=== PATIENT | female | born 1940 | race Caucasian/White ===

== ENCOUNTER → 2022-01-01 | Outpatient (CLI) | payer MEDICARE ==
--- NOTE | 2022-01-01 14:28 | US ---
EXAMINATION TYPE: US liver DATE OF EXAM: 01/01/2022 COMPARISON: NONE CLINICAL HISTORY: 81-year-old female R94.5 abnormal results. Abnormal LFT's TECHNIQUE: Multiple sonographic images of the right upper quadrant are obtained. FINDINGS: EXAM MEASUREMENTS: Liver Length: 12.2 cm Gallbladder Wall: 0.2 cm CBD: 0.5 cm Right Kidney: 9.0 x 4.7 x 4.3 cm [employer]: Morbidly obese pt, poor historian, difficult exam Pancreas: The tail is obscured by overlying bowel gas. There is heterogeneous appearance in the bernard on of the pancreatic neck and distal body over an area of 3.0 cm. Liver: Slightly nodular contour. Overall homogeneous parenchyma. No focal lesion. Gallbladder: wnl Evidence for sonographic Acevedo's sign: No CBD: wnl Right Kidney: Cyst upper pole= 1.3 x 1.3 x 1.1 cm. There is mild cortical thinning there is no hydro nephrosis. IMPRESSION: 1. Some images of the liver suggest a nodular hepatic contour. This may be artifactual due to large b sendy habitus. Correlate clinically to exclude the possibility of underlying cirrhosis. 2. No gallstones or biliary ductal dilatation. 3. Heterogeneous 3.0 cm area at the pancreatic neck/body. Pancreas protocol CT or MRI to exclude a ma ss here.
[2022-01-01 18:58] LABS: Basophils # (A) 0.05 X 10*3/uL (0.00-0.10); Basophils % (A) 0.9 %; Eosinophils # (A) 0.23 X 10*3/uL (0.04-0.35); Eosinophils % (A) 4.1 %; HCT 43.7 % (37.2-46.3); HGB 13.9 g/dL (12.0-15.0); Immature Grans, Automated 0.7 %; Lymphocytes # (A) 1.49 X 10*3/uL (0.90-5.00); Lymphocytes % (A) 26.8 %; MCH 31.9 pg (27.0-32.0); MCHC 31.8 g/dL (32.0-37.0); MCV 100.2 fL (80.0-97.0); Mean Platelet Volume 11.8 fL (9.5-12.2); Monocytes # (A) 0.48 X 10*3/uL (0.20-1.00); Monocytes % (A) 8.6 %; NRBC Per 100 WBC 0 /100 WBCS (0.0-0.0); Neutrophils # (A) 3.27 X 10*3/uL (1.80-7.70); Neutrophils % (A) 58.9 %; Platelet Count 131 X 10*3/uL (140-440); RBC 4.36 X 10*6/uL (4.10-5.20); RDW 13.5 % (11.5-14.5); WBC 5.56 X 10*3/uL (4.50-10.00)
[2022-01-01 19:11] LABS: Ceruloplasmin 25.3 mg/dL (20.0-60.0)
[2022-01-02 00:54] LABS: % Iron Saturation 32.29 (12.00-45.00); African American GFR (CKD) 37.1 (60.0-200.0); Albumin 3.8 g/dL (3.8-4.9); Albumin/Globulin Ratio 1.14 (1.60-3.17); Anion Gap 15.7 mmol/L (10.00-18.00); BUN/Creat Ratio 16.41 Ratio (12.00-20.00); Blood Urea Nitrogen 25.1 mg/dL (9.0-27.0); Calcium 9.7 mg/dL (8.7-10.3); Carbon Dioxide 18.6 mmol/L (20.0-27.5); Globulin 3.4 g/dL (1.6-3.3); Potassium 4.6 mmol/L (3.5-5.5); Total Bilirubin 0.8 mg/dL (0.30-1.20); Total Protein 7.2 g/dL (6.2-8.2)
[2022-01-02 02:02] LABS: Protein, Total 7.3 g/dL (6.2-8.2)
[2022-01-02 05:55] LABS: Hepatitis B Surface Antigen Nonreactive (Nonreactive); Hepatitis C IgG Antibody Nonreactive (Nonreactive)
[2022-01-02 13:41] LABS: Albumin 3.67 g/dL (3.80-4.90); Gamma Globulin 0.96 g/dL (0.70-1.50)
== END | disposition home or self-care (01) ==
LOC: RADUSWWP 12:07
PROVIDERS: ATTEND Internal Medicine Gastroenterology
DX: R94.5 Abnormal results of liver function studies (principal)
CPT/HCPCS: 76705; 80053; 82103; 82390; 82728; 83516; 83540; 83550; 84165; 85025; 86038; 86803; 87340

== ENCOUNTER → 2022-02-21 | Outpatient (CLI) | payer MEDICARE ==
--- NOTE | 2022-02-21 15:25 | CT ---
EXAMINATION TYPE: CT abdomen wo/w con DATE OF EXAM: 02/21/2022 COMPARISON: Ultrasound dated 01/01/2022 HISTORY: ABNORMAL FINDINGS ON IMAGING CT DLP: 1199.7 mGycm Automated exposure control for dose reduction was used. TECHNIQUE: Helical acquisition of images was performed from the lung bases through the top of iliac crest to include entire abdomen. CONTRAST: Performed without Oral Contrast and without and with IV Contrast, patient injected with 80 ML mL of I sovue 370. FINDINGS: Artifactual images. LUNG BASES: Cardiomegaly. LIVER/GB: Slightly nodular outline of the liver, hepatic cirrhosis cannot be excluded, please correla te with liver function tests and hepatic viral serology. No definite hepatic focal lesion identified. The gallbladder is not completely distended. PANCREAS: Fatty infiltration of the pancreatic head which may correspond to the heterogeneous area se en in the previous ultrasound. Grossly unremarkable remainder of the pancreas with no definite pancre atic lesion or pancreatic duct dilatation. SPLEEN: No significant abnormality is seen. ADRENALS: No significant abnormality is seen. KIDNEYS: Right upper pole simple renal cyst, otherwise unremarkable kidneys. BOWEL: Unremarkable stomach, duodenum and visualized small bowel. Scattered uncomplicated colonic di verticulosis seen in the visualized portion of the colon. LYMPH NODES: No pathologically enlarged abdominal lymph nodes. 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 Partially sacralized L5. Marked degenerative changes at T12-L1 level. FREE AIR: No free air is visualized. OTHER: Arterial atherosclerotic calcifications. Prominent collateral vascular channels are seen along the left side of the abdomen, suggestive of portal hypertension. No sizable ascites. IMPRESSION: Artifactual CT scan. With this limitation, no obvious suspicious pancreatic lesion identified. Fatty infiltration of the head and neck as described above. Precautionary follow-up CT scan in 6 months can be considered. Suspected hepatic cirrhotic changes with prominent left retroperitoneal collateral vascular channels suggestive of portal hypertension without sizable abdominal ascites. Recommend correlation with liver function tests and hepatic viral serology. Other incidental findings as described above.
== END | disposition home or self-care (01) ==
LOC: RADCTMAIN 11:59
PROVIDERS: ATTEND Internal Medicine Gastroenterology
DX: K82.8 Other specified diseases of gallbladder (principal); R93.89 Abnormal findings on diagnostic imaging of other specified body structures
CPT/HCPCS: 82565; 84520; 74170; 36415; Q9967